=== PATIENT | female | born 1980 | race Caucasian/White ===

== ENCOUNTER 2017-09-23 02:40 | Observation (INO) | payer BC ==
[~2017-09-23] VITALS: Ht 170.2 cm; Wt 137.0 kg
== END 2017-09-23 04:00 | disposition home or self-care (01) ==
LOC: SPU 02:40
PROVIDERS: ADMIT Obstetrics & Gynecology; ATTEND Obstetrics & Gynecology
DX: O36.8130 Decreased fetal movements, third trimester, not applicable or unspecified (principal); Z3A.30 30 weeks gestation of pregnancy
CPT/HCPCS: G0378